=== PATIENT | female | born 1945 | race Caucasian/White ===

== ENCOUNTER 2018-10-07 18:20 | Observation (INO) | payer MEDICARE ==
[~2018-10-07] VITALS: Ht 160 cm; Wt 77.2 kg
--- OUTSIDE RECORDS SUMMARY | 2018-10-07 18:22 | XMS REPORT ---
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 Allergies, Adverse Reactions, Alerts Allergy Name Allergy Type Status Severity Reaction(s) Onset Date Inactive Date Treating Clinician Comments No Known Allergies DA Active U 2016-10-21 00:00:00 Medications This patient has no known medications. Results Test Description Test Time Test Comments Text Results Atomic Results Result Comments BASIC METABOLIC PANEL 2018-08-17 08:57:00 SODIUM (test code=NA) 140 mmol/L 136-145 POTASSIUM (test code=K) 4.2 mmol/L 3.5-5.1 CHLORIDE (test code=CL) 102.0 mmol/L 98-107 CARBON DIOXIDE (test code=CO2) 35.0 mmol/L 21-32 ANION GAP (test code=GAP) 7.2 10-20 GLUCOSE (test code=GLU) 89 mg/dL 74-106 BLOOD UREA NITROGEN (test code=BUN) 20 mg/dL 7-18 GLOMERULAR FILTRATION RATE (test code=GFR) 26 mL/min >=60 Estimated GFR by using Modified MDRD formula.Chronic kidney disease is defined as either kidney damageor GFR <60 mL/min/1.73 m2 for >3 months. CREATININE (test code=CREAT) 1.90 mg/dL 0.55-1.02 Note change in reference range due to change in reagent. BUN/CREATININE RATIO (test code=BUN/CREA) 10.5 10-20 CALCIUM (test code=CA) 8.8 mg/dL 8.5-10.1 [id number] 08:57:00* Test Item Value Reference Range Comments MAGNESIUM (test code=MAG) 2.0 mg/dL 1.8-2.4 BASIC METABOLIC [id number] 08:41:00* Test Item Value Reference Range Comments SODIUM (test code=NA) 140 mmol/L 136-145 POTASSIUM (test code=K) 4.2 mmol/L 3.5-5.1 CHLORIDE (test code=CL) 102.0 mmol/L 98-107 CARBON DIOXIDE (test code=CO2) mmol/L 21-32 ANION GAP (test code=GAP) 10-20 GLUCOSE (test code=GLU) mg/dL 74-106 BLOOD UREA NITROGEN (test code=BUN) mg/dL 7-18 GLOMERULAR FILTRATION RATE (test code=GFR) mL/min >=60 CREATININE (test code=CREAT) mg/dL 0.55-1.02 BUN/CREATININE RATIO (test code=BUN/CREA) 10-20 CALCIUM (test code=CA) mg/dL 8.5-10.1 [id number] 08:41:00* Test Item Value Reference Range Comments MAGNESIUM (test code=MAG) mg/dL 1.8-2.4 UR UREA NITROGEN [id number] 03:09:00* Test Item Value Reference Range Comments UR UREA NITROGEN RANDOM (test code=UUN) 133 mg/dL 350-1000 - US RETRO [id number] 23:56:00 Name: [facility] : 1945 Age/S: 72 / F [address] [facility] Unit #: [id number] Loc: [place] [address] Phys: Brenden Archibald MD Acct: [id number] Dis Date: Status: ADM IN PHONE #: [phone] Exam Date: 08/16/2018 2336 FAX #: [phone] Reason: worsening renal insufficiency EXAMS: CPT CODE: [id number] US RETRO LTD 55595 ULTRASOUND- RENAL AND BLADDER Location Code N13 CLINICAL HISTORY: worsening renal insufficiency Technique: Real-time duplex grayscale and color Doppler imaging was obtained. FINDINGS: The right kidney measures 10.1 x 4.7 x 4.7 cm. The left kidney measures 9.6 x 5.3 x 4.4 cm.. Both kidneys are normal in size and echogenicity without calculi. No evidence of hydronephrosis. There is a 1.1 x 0.7 x 1 cm small cysts at the lower pole of the left kidney. There is mild bilateral renal cortical thinning, more apparent on the right. The bladder is unremarkable in appearance without distention, wall thickening, masses or diverticula. IMPRESSION: Mild bilateral renal cortical thinning suggests medical renal disease. No evidence of hydronephrosis. at 2356 Reported and signed by: Dionna Lozano M.D. CC: Brenden Archibald MD Technologist: MIKHAIL TANG Trnscb Date/Time: 08/16/2018 (4045) TicoT Orig Print D/T: S: 08/17/2018 (0000) Probe: PAGE 1 Signed Report UR NA,[id number] 23:13:00* Test Item Value Reference Range Comments UR NA,RANDOM (test code=JAVIER) 119 mmol/L 20-110 UR CREATININE [id number] 23:13:00* Test Item Value Reference Range Comments UR CREATININE RANDOM (test code=CREATU) 123.0 mg/dL 30-125 UR NA,[id number] 23:04:00* Test Item Value Reference Range Comments UR NA,RANDOM (test code=JAVIER) 119 mmol/L 20-110 UR CREATININE [id number] 23:04:00* Test Item Value Reference Range Comments UR CREATININE RANDOM (test code=CREATU) mg/dL 30-125 CREATINE KINASE (CK)2018-08-16 21:04:00* Test Item Value Reference Range Comments CREATINE KINASE (CK) (test code=CK) 58 IUnit/L 26-208 BASIC METABOLIC [id number] 18:28:00* Test Item Value Reference Range Comments SODIUM (test code=NA) 140 mmol/L 136-145 POTASSIUM (test code=K) 3.8 mmol/L 3.5-5.1 CHLORIDE (test code=CL) 99.0 mmol/L 98-107 CARBON DIOXIDE (test code=CO2) 35.0 mmol/L 21-32 ANION GAP (test code=GAP) 9.8 10-20 GLUCOSE (test code=GLU) 84 mg/dL 74-106 BLOOD UREA NITROGEN (test code=BUN) 19 mg/dL 7-18 GLOMERULAR FILTRATION RATE (test code=GFR) 21 mL/min >=60 Estimated GFR by using Modified MDRD formula.Chronic kidney disease is defined as either kidney damageor GFR <60 mL/min/1.73 m2 for >3 months. CREATININE (test code=CREAT) 2.30 mg/dL 0.55-1.02 Note change in reference range due to change in reagent. BUN/CREATININE RATIO (test code=BUN/CREA) 8.3 10-20 CALCIUM (test code=CA) 9.8 mg/dL 8.5-10.1 BASIC METABOLIC [id number] 18:16:00* Test Item Value Reference Range Comments SODIUM (test code=NA) 140 mmol/L 136-145 POTASSIUM (test code=K) 3.8 mmol/L 3.5-5.1 CHLORIDE (test code=CL) 99.0 mmol/L 98-107 CARBON DIOXIDE (test code=CO2) mmol/L 21-32 ANION GAP (test code=GAP) 10-20 GLUCOSE (test code=GLU) mg/dL 74-106 BLOOD UREA NITROGEN (test code=BUN) mg/dL 7-18 GLOMERULAR FILTRATION RATE (test code=GFR) mL/min >=60 CREATININE (test code=CREAT) mg/dL 0.55-1.02 BUN/CREATININE RATIO (test code=BUN/CREA) 10-20 CALCIUM (test code=CA) mg/dL 8.5-10.1 BASIC METABOLIC [id number] 16:15:00* Test Item Value Reference Range Comments SODIUM (test code=NA) 140 mmol/L 136-145 POTASSIUM (test code=K) 3.2 mmol/L 3.5-5.1 CHLORIDE (test code=CL) 100.0 mmol/L 98-107 CARBON DIOXIDE (test code=CO2) 31.0 mmol/L 21-32 ANION GAP (test code=GAP) 12.2 10-20 GLUCOSE (test code=GLU) 136 mg/dL 74-106 BLOOD UREA NITROGEN (test code=BUN) 19 mg/dL 7-18 GLOMERULAR FILTRATION RATE (test code=GFR) 22 mL/min >=60 Estimated GFR by using Modified MDRD formula.Chronic kidney disease is defined as either kidney damageor GFR <60 mL/min/1.73 m2 for >3 months. CREATININE (test code=CREAT) 2.20 mg/dL 0.55-1.02 Note change in reference range due to change in reagent. BUN/CREATININE RATIO (test code=BUN/CREA) 8.6 10-20 CALCIUM (test code=CA) 9.8 mg/dL 8.5-10.1 DRUGS OF ABUSE SCREEN [id number] 16:14:00* Test Item Value Reference Range Comments UA PH DIPSTICK (test code=SEBASTIEN) 5.5 5.0-8.0 URN COCAINE (test code=COCAURN) NEGATIVE <300 ng/mL URN CANNABINOIDS (test code=CANNABURN) NEGATIVE <50 ng/mL URN AMPHETAMINE (test code=AMPHETURN) NEGATIVE <1000 ng/mL URN BARBITURATE (test code=BARBITURN) NEGATIVE <200 ng/mL URN BENZODIAZEPINE (test code=BENZOURN) NEGATIVE <200 ng/mL URN OPIATES (test code=OPIATURN) NEGATIVE <300 ng/mL URN PHENCYCLIDINE (PCP) (test code=PHENCURN) NEGATIVE <25 ng/mL URN METHADONE (test code=METHAURN) NEGATIVE <300 ng/mL BASIC METABOLIC [id number] 16:10:00* Test Item Value Reference Range Comments SODIUM (test code=NA) 140 mmol/L 136-145 POTASSIUM (test code=K) 3.2 mmol/L 3.5-5.1 CHLORIDE (test code=CL) 100.0 mmol/L 98-107 CARBON DIOXIDE (test code=CO2) mmol/L 21-32 ANION GAP (test code=GAP) 10-20 GLUCOSE (test code=GLU) mg/dL 74-106 BLOOD UREA NITROGEN (test code=BUN) mg/dL 7-18 GLOMERULAR FILTRATION RATE (test code=GFR) mL/min >=60 CREATININE (test code=CREAT) mg/dL 0.55-1.02 BUN/CREATININE RATIO (test code=BUN/CREA) 10-20 CALCIUM (test code=CA) mg/dL 8.5-10.1 DRUGS OF ABUSE SCREEN [id number] 15:51:00* Test Item Value Reference Range Comments UA PH DIPSTICK (test code=SEBASTIEN) 5.5 5.0-8.0 URN COCAINE (test code=COCAURN) <300 ng/mL URN CANNABINOIDS (test code=CANNABURN) <50 ng/mL URN AMPHETAMINE (test code=AMPHETURN) <1000 ng/mL URN BARBITURATE (test code=BARBITURN) <200 ng/mL URN BENZODIAZEPINE (test code=BENZOURN) <200 ng/mL URN OPIATES (test code=OPIATURN) <300 ng/mL URN PHENCYCLIDINE (PCP) (test code=PHENCURN) <25 ng/mL URN METHADONE (test code=METHAURN) <300 ng/mL URINALYSIS [id number] 15:50:00* Test Item Value Reference Range Comments UA COLOR (test code=COLU) YELLOW YELLOW UA APPEARANCE (test code=APPU) CLEAR CLEAR UA GLUCOSE DIPSTICK (test code=DGLUU) NEGATIVE mg/dL NEGATIVE UA BILIRUBIN DIPSTICK (test code=BILU) NEGATIVE mg/dL NEGATIVE UA KETONE DIPSTICK (test code=KETU) NEGATIVE mg/dL NEGATIVE UA SPECIFIC GRAVITY (test code=SGU) 1.011 1.001-1.035 UA BLOOD DIPSTICK (test code=EARLE) Negative mg/dL NEGATIVE UA PH DIPSTICK (test code=SEBASTIEN) 5.5 5.0-8.0 UA PROTEIN DIPSTICK (test code=PROU) NEGATIVE mg/dL NEGATIVE UA UROBILINIOGEN DIPSTICK (test code=URO) Normal mg/dL NEGATIVE UA NITRITE DIPSTICK (test code=THEA) NEGATIVE NEGATIVE UA LEUKOCYTE ESTERASE W REFLEX (test code=LEUUR) NEGATIVE Mitul/uL NEGATIVE UA WBC (test code=WBCU) 0-5 per HPF 0-5 UA RBC (test code=RBCU) 0-2 #/HPF 0-5 UA EPITHELIAL CELLS (test code=EPIU) FEW per HPF FEW UA BACTERIA (test code=BACU) FEW #/HPF NONE UA HYALINE CAST (test code=HYALU) >20 #/LPF 0-5 UA MUCUS (test code=MUCU) FEW #/LPF FEW Urine Source? Clean CatchURINALYSIS [id number] 15:49:00* Test Item Value Reference Range Comments UA COLOR (test code=COLU) YELLOW YELLOW UA APPEARANCE (test code=APPU) CLEAR CLEAR UA GLUCOSE DIPSTICK (test code=DGLUU) NEGATIVE mg/dL NEGATIVE UA BILIRUBIN DIPSTICK (test code=BILU) NEGATIVE mg/dL NEGATIVE UA KETONE DIPSTICK (test code=KETU) NEGATIVE mg/dL NEGATIVE UA SPECIFIC GRAVITY (test code=SGU) 1.011 1.001-1.035 UA BLOOD DIPSTICK (test code=EARLE) Negative mg/dL NEGATIVE UA PH DIPSTICK (test code=SEBASTIEN) 5.5 5.0-8.0 UA PROTEIN DIPSTICK (test code=PROU) NEGATIVE mg/dL NEGATIVE UA UROBILINIOGEN DIPSTICK (test code=URO) Normal mg/dL NEGATIVE UA NITRITE DIPSTICK (test code=THEA) NEGATIVE NEGATIVE UA LEUKOCYTE ESTERASE W REFLEX (test code=LEUUR) NEGATIVE Mitul/uL NEGATIVE UA WBC (test code=WBCU) per HPF 0-5 UA RBC (test code=RBCU) per HPF 0-5 UA EPITHELIAL CELLS (test code=EPIU) per HPF Few UA BACTERIA (test code=BACU) per HPF NONE Urine Source? Clean [id number] 13:17:00* Test Item Value Reference Range Comments ALCOHOL (test code=ALC) < 3 mg/dL 0.0-3.0 INTERPRETIVE DATA NOTE: POSITIVE SCREENING RESULTS SHOULD BE CONSIDERED PRESUMPTIVE.WHEN COLLECTED FOR MEDICAL PURPOSES ONLY. SPECIMEN WILL NOTBE COLLECTED BY CHAIN OF CUSTODY.IF A CONFIRMATION OF POSITIVE RESULTS IS DESIRED, ACONFIRMATION TEST MUST BE REQUESTED BY THE PHYSICIAN AT ANADDITIONAL CHARGE TO THE PATIENT. - XR SHOULDER 2 + V [id number] 12:50:00 FAX: Harper Schafer [phone] [place]: B St: REG Name: [facility] : [birth year] Age/S: 72/F [address] [facility] Unit #: [id number] Loc: [place] [address] Phys: Harper Samson MD Acct: [id number] Dis Date: Status: REG ER PHONE #: [phone] Exam Date: 08/16/2018 1241 FAX #: [phone] Reason: fall, shoulder pain EXAMS: CPT CODE: [id number] XR SHOULDER 2 + [place] [address] HISTORY: Fall and pain. COMPARISON: None available. AP AND LATERAL VIEW OF THE CHEST: Patchy pack in the left lateral axillary with the leads extending into the neck. No acute infiltrates, effusion or congestion. Pleural thickening of the left costophrenic angle with loss of lung volume and scarring. Dependent changes. Cardiac silhouette is nonenlarged. DJD of the dorsal spine. IMPRESSION: No acute infiltrates, effusion or congestion. No pneumothorax. BILATERAL KNEE SERIES, 4 VIEWS EACH: No acute fracture or dislocation of either knee. Joint spaces are preserved. Articular surfac es are well marginated. No joint fluid is noted. Bone mineralization and soft tissues are normal. IMPRESSION: No acu te fracture or dislocation bilaterally. Bilateral joint spaces are prese rved. 3 VIEWS OF THE RIGHT SHOULDER: No acute fracture or dislocation. Shoulder and AC joints are mildly n arrowed. Bone mineralization and soft tissues are normal. Visualized ananya gs are clear. The scapula, coracoid and glenoid are normal. IM PRESSION: No acute fracture or dislocation. Narrowed shoulder and AC joints. 3 VIEWS OF THE RIGHT ANKLE: No acute fracture or dislocation. Ankle mortise is preserved. Soft PAGE 1 Signed Report (CONTINUED) FAX: Harper Schafer [phone] [place]: St: REG Name: [facility] : 1945 A ge/S: 72/F [address] [facility] Unit #: [id number] Loc : [place] [address] Phys: Harper Samson MD Acct: [id number] Dis Date: Status: REG ER PHONE #: [phone] E xam Date: 08/16/2018 1241 FAX #: [phone] Reas on: fall, shoulder pain EXAMS: CPT CODE: [id number] XR SHOULDER 2 + [place] [address] <Continued> tissue swelling along the lateral malleolus. No osteochondral lesion. Plantar calcaneal enthesophyte. IMPRESSION: No acute fracture or dislocation. Ankle mortise is preserved. Soft tissue swelling along the lateral malleolus. 3 VIEWS OF THE LUMBAR SPINE: No acute fracture or dislocation. Vertebral body heights are maintained. Mild lumbarization of the S1 vertebral body. Dextroscoliosis. Disc space narrowing at L5-S1 level. Vascular calcifications. IMPRESSION: No acute fracture or dislocation. Vertebral body heights are maintained. at 1250 Reported and signed by: Jose Alfredo Garcia M.D. CC: Harper Gordon MD Technologist: Zahira Peters Trnscrd Date/Time/By: 08/16/2018 (12 50) : By: [email or web address] Orig Print D/T: S: 08/16/2018 (9202) PAGE 2 Signed Report - XR L-SPINE 2/3 [id number] 12:50:00 FAX: Harper Schafer [phone] [place]: St: REG Name: [facility] : [birth year] Age/S: 72/F [address] Unit #: [id number] Loc: [place] [address] Phys: Harper Sasmon MD Acct: [id number] Dis Date: Status: REG ER PHONE #: [phone] Exam Date: 08/16/2018 1210 FAX #: [phone] Reason: fall, back pain EXAMS: CPT CODE: [id number] XR L-SPINE 2/3 VIEWS 52640 HISTORY: Fall and pain. COMPARISON: None available. AP AND LATERAL VIEW OF THE CHEST: Patchy pack in the left lateral axillary with the leads extending into the neck. No acute infiltrates, effusion or congestion. Pleural thickening of the left costophrenic angle with loss of lung volume and scarring. Dependent changes. Cardiac silhouette is nonenlarged. DJD of the dorsal spine. IMPRESSION: No acute infiltrates, effusion or congestion. No pneumothorax. BILATERAL KNEE SERIES, 4 VIEWS EACH: No acute fracture or dislocation of either knee. Joint spaces are preserved. Articular surfac es are well marginated. No joint fluid is noted. Bone mineralization and soft tissues are normal. IMPRESSION: No acu te fracture or dislocation bilaterally. Bilateral joint spaces are prese rved. 3 VIEWS OF THE RIGHT SHOULDER: No acute fracture or dislocation. Shoulder and AC joints are mildly n arrowed. Bone mineralization and soft tissues are normal. Visualized ananya gs are clear. The scapula, coracoid and glenoid are normal. IM PRESSION: No acute fracture or dislocation. Narrowed shoulder and AC joints. 3 VIEWS OF THE RIGHT ANKLE: No acute fracture or dislocation. Ankle mortise is preserved. Soft PAGE 1 Signed Report (CONTINUED) FAX: Harper Schafer [phone] [place]: St: REG Name: [facility] : 1945 A ge/S: 72/ [facility] [address] Unit #: [id number] Loc : [place] [address] Phys: Harper Samson MD Acct: [id number] Dis Date: Status: REG ER PHONE #: [phone] E xam Date: 08/16/2018 1210 FAX #: [phone] Reas on: fall, back pain EXAMS: CPT CODE: [id number] XR L-SPINE 2/3 VIEWS 00056 <Continued> tissue swelling along the lateral malleolus. No osteochondral lesion. Plantar calcaneal enthesophyte. IMPRESSION: No acute fracture or dislocation. Ankle mortise is preserved. Soft tissue swelling along the lateral malleolus. 3 VIEWS OF THE LUMBAR SPINE: No acute fracture or dislocation. Vertebral body heights are maintained. Mild lumbarization of the S1 vertebral body. Dextroscoliosis. Disc space narrowing at L5-S1 level. Vascular calcifications. IMPRESSION: No acute fracture or dislocation. Vertebral body heights are maintained. at 1258 Reported and signed by: Jose Alfredo Garcia M.D. CC: Harper Gordon MD Technologist: Zahira Peters Trnscrd Date/Time/By: 08/16/2018 (12 50) : By: [email or web address] Orig Print D/T: S: 08/16/2018 (8286) PAGE 2 Signed Report - XR KNEE 3 V [id number] 12:50:00 FAX: Harper Schafer [phone] [place]: B St: REG Name: [facility] : [birth year] Age/S: 72/F [facility] Unit #: [id number] Loc: [place] [address] Phys: Harper Samson MD Acct: [id number] Dis Date: Status: REG ER PHONE #: [phone] Exam Date: 08/16/2018 1220 FAX #: [phone] Reason: fall, knee pain EXAMS: CPT CODE: [id number] XR KNEE [address] [place] [address] HISTORY: Fall and pain. COMPARISON: None available. AP AND LATERAL VIEW OF THE CHEST: Patchy pack in the left lateral axillary with the leads extending into the neck. No acute infiltrates, effusion or congestion. Pleural thickening of the left costophrenic angle with loss of lung volume and scarring. Dependent changes. Cardiac silhouette is nonenlarged. DJD of the dorsal spine. IMPRESSION: No acute infiltrates, effusion or congestion. No pneumothorax. BILATERAL KNEE SERIES, 4 VIEWS EACH: No acute fracture or dislocation of either knee. Joint spaces are preserved. Articular surfac es are well marginated. No joint fluid is noted. Bone mineralization and soft tissues are normal. IMPRESSION: No acu te fracture or dislocation bilaterally. Bilateral joint spaces are prese rved. 3 VIEWS OF THE RIGHT SHOULDER: No acute fracture or dislocation. Shoulder and AC joints are mildly n arrowed. Bone mineralization and soft tissues are normal. Visualized ananya gs are clear. The scapula, coracoid and glenoid are normal. IM PRESSION: No acute fracture or dislocation. Narrowed shoulder and AC joints. 3 VIEWS OF THE RIGHT ANKLE: No acute fracture or dislocation. Ankle mortise is preserved. Soft PAGE 1 Signed Report (CONTINUED) FAX: Harper Schafer [phone] [place]: St: REG Name: [facility] : 1945 A ge/S: 72/F [address] Unit #: [id number] Loc : [place] [address] Phys: Harper Samson MD Acct: [id number] Dis Date: Status: REG ER PHONE #: [phone] E xam Date: 08/16/2018 1220 FAX #: [phone] Reas on: fall, knee pain EXAMS: CPT CODE: [id number] XR KNEE [address] [place] [address] <Continued> tissue swelling along the lateral malleolus. No osteochondral lesion. Plantar calcaneal enthesophyte. IMPRESSION: No acute fracture or dislocation. Ankle mortise is preserved. Soft tissue swelling along the lateral malleolus. 3 VIEWS OF THE LUMBAR SPINE: No acute fracture or dislocation. Vertebral body heights are maintained. Mild lumbarization of the S1 vertebral body. Dextroscoliosis. Disc space narrowing at L5-S1 level. Vascular calcifications. IMPRESSION: No acute fracture or dislocation. Vertebral body heights are maintained. at 1250 Reported and signed by: Jose Alfredo Garcia M.D. CC: Harper Gordon MD Technologist: Zahira Peters Trnscrd Date/Time/By: 08/16/2018 (12 50) : By: [email or web address] Orig Print D/T: S: 08/16/2018 (2971) PAGE 2 Signed Report - XR ANKLE 3 + V [id number] 12:50:00 FAX: Harper Schafer [phone] [place]: B St: REG Name: [facility] : [birth year] Age/S: 72/F [address] Unit #: [id number] Loc: [place] [address] Phys: Harper Samson MD Acct: [id number] Dis Date: Status: REG ER PHONE #: [phone] Exam Date: 08/16/2018 1230 FAX #: [phone] Reason: fall, ankle pain EXAMS: CPT CODE: [id number] XR ANKLE 3 + V RT [address] HISTORY: Fall and pain. COMPARISON: None available. AP AND LATERAL VIEW OF THE CHEST: Patchy pack in the left lateral axillary with the leads extending into the neck. No acute infiltrates, effusion or congestion. Pleural thickening of the left costophrenic angle with loss of lung volume and scarring. Dependent changes. Cardiac silhouette is nonenlarged. DJD of the dorsal spine. IMPRESSION: No acute infiltrates, effusion or congestion. No pneumothorax. BILATERAL KNEE SERIES, 4 VIEWS EACH: No acute fracture or dislocation of either knee. Joint spaces are preserved. Articular surfac es are well marginated. No joint fluid is noted. Bone mineralization and soft tissues are normal. IMPRESSION: No acu te fracture or dislocation bilaterally. Bilateral joint spaces are prese rved. 3 VIEWS OF THE RIGHT SHOULDER: No acute fracture or dislocation. Shoulder and AC joints are mildly n arrowed. Bone mineralization and soft tissues are normal. Visualized ananya gs are clear. The scapula, coracoid and glenoid are normal. IM PRESSION: No acute fracture or dislocation. Narrowed shoulder and AC joints. 3 VIEWS OF THE RIGHT ANKLE: No acute fracture or dislocation. Ankle mortise is preserved. Soft PAGE 1 Signed Report (CONTINUED) FAX: Harper Schafer [phone] [place]: B St: REG Name: [facility] : 1945 A ge/S: 72/F [address] Unit #: [id number] Loc : [place] [address] Phys: Harper Samson MD Acct: [id number] Dis Date: Status: REG ER PHONE #: [phone] E xam Date: 08/16/2018 1230 FAX #: [phone] Reas on: fall, ankle pain EXAMS: CPT CODE: [id number] XR ANKLE 3 + V RT 26718 <Continued> tissue swelling along the lateral malleolus. No osteochondral lesion. Plantar calcaneal enthesophyte. IMPRESSION: No acute fracture or dislocation. Ankle mortise is preserved. Soft tissue swelling along the lateral malleolus. 3 VIEWS OF THE LUMBAR SPINE: No acute fracture or dislocation. Vertebral body heights are maintained. Mild lumbarization of the S1 vertebral body. Dextroscoliosis. Disc space narrowing at L5-S1 level. Vascular calcifications. IMPRESSION: No acute fracture or dislocation. Vertebral body heights are maintained. at 4806 Reported and signed by: Jose Alfredo Garcia M.D. CC: Harper Gordon MD Technologist: Zahira Peters Trnscrd Date/Time/By: 08/16/2018 (12 50) : By: [email or web address] Orig Print D/T: S: 08/16/2018 (1733) PAGE 2 Signed Report - XR CHEST 2 [id number] 12:50:00 FAX: Harper Schafer [phone] [place]: St: REG Name: [facility] : [birth year] Age/S: 72/F [address] [facility] Unit #: [id number] Loc: [place] [address] Phys: Harper Samson MD Acct: [id number] Dis Date: Status: REG ER PHONE #: [phone] Exam Date: 08/16/2018 1200 FAX #: [phone] Reason: fall EXAMS: CPT CODE: [id number] XR CHEST 2 V 88600 HISTORY: Fall and pain. COMPARISON: None available. AP AND LATERAL VIEW OF THE CHEST: Patchy pack in the left lateral axillary with the leads extending into the neck. No acute infiltrates, effusion or congestion. Pleural thickening of the left costophrenic angle with loss of lung volume and scarring. Dependent changes. Cardiac silhouette is nonenlarged. DJD of the dorsal spine. IMPRESSION: No acute infiltrates, effusion or congestion. No pneumothorax. BILATERAL KNEE SERIES, 4 VIEWS EACH: No acute fracture or dislocation of either knee. Joint spaces are preserved. Articular surfac es are well marginated. No joint fluid is noted. Bone mineralization and soft tissues are normal. IMPRESSION: No acu te fracture or dislocation bilaterally. Bilateral joint spaces are prese rved. 3 VIEWS OF THE RIGHT SHOULDER: No acute fracture or dislocation. Shoulder and AC joints are mildly n arrowed. Bone mineralization and soft tissues are normal. Visualized ananya gs are clear. The scapula, coracoid and glenoid are normal. IM PRESSION: No acute fracture or dislocation. Narrowed shoulder and AC joints. 3 VIEWS OF THE RIGHT ANKLE: No acute fracture or dislocation. Ankle mortise is preserved. Soft PAGE 1 Signed Report (CONTINUED) FAX: Harper Schafer [phone] [place]: St: REG Name: [facility] : 1945 A ge/S: 72/ [address] Sinha [facility] Unit #: [id number] Loc : [place] [address] Phys: Harper Samson MD Acct: [id number] Dis Date: Status: REG ER PHONE #: [phone] E xam Date: 08/16/2018 1200 FAX #: [phone] Reas on: fall EXAMS: CPT CODE: [id number] XR CHEST 2 V 32838 <Continued> tissue swelling along the lateral malleolus. No osteochondral lesion. Plantar calcaneal enthesophyte. IMPRESSION: No acute fracture or dislocation. Ankle mortise is preserved. Soft tissue swelling along the lateral malleolus. 3 VIEWS OF THE LUMBAR SPINE: No acute fracture or dislocation. Vertebral body heights are maintained. Mild lumbarization of the S1 vertebral body. Dextroscoliosis. Disc space narrowing at L5-S1 level. Vascular calcifications. IMPRESSION: No acute fracture or dislocation. Vertebral body heights are maintained. at 1250 Reported and signed by: Jose Alfredo Garcia M.D. CC: Harper Gordon MD Technologist: Zahira Peters Trnscrd Date/Time/By: 08/16/2018 (12 50) : By: [email or web address] Orig Print D/T: S: 08/16/2018 (0272) PAGE 2 Signed Report COMPREHENSIVE METABOLIC [id number] 12:38:00* Test Item Value Reference Range Comments SODIUM (test code=NA) 143 mmol/L 136-145 POTASSIUM (test code=K) 2.5 mmol/L 3.5-5.1 Results called [id number] to by [email or web address] 08/16/18 1236Critical results verified and read back by Nurse? Y CHLORIDE (test code=CL) 102.0 mmol/L 98-107 CARBON DIOXIDE (test code=CO2) mmol/L 21-32 ANION GAP (test code=GAP) 10-20 GLUCOSE (test code=GLU) mg/dL 74-106 BLOOD UREA NITROGEN (test code=BUN) mg/dL 7-18 GLOMERULAR FILTRATION RATE (test code=GFR) mL/min >=60 CREATININE (test code=CREAT) mg/dL 0.55-1.02 BUN/CREATININE RATIO (test code=BUN/CREA) 10-20 TOTAL PROTEIN (test code=PROT) gram/dL 6.4-8.2 ALBUMIN (test code=ALB) g/dL 3.4-5.0 GLOBULIN (test code=GLOB) gram/dL 2.7-4.2 ALBUMIN/GLOBULIN RATIO (test code=A/G) 0.75-1.50 CALCIUM (test code=CA) mg/dL 8.5-10.1 BILIRUBIN TOTAL (test code=BILT) mg/dL 0.0-1.0 SGOT/AST (test code=AST) IUnit/L 15-37 SGPT/ALT (test code=ALT) IUnit/L 12-78 ALKALINE PHOSPHATASE TOTAL (test code=ALKP) IUnit/L 45-117 [id number] 12:38:00* Test Item Value Reference Range Comments LIPASE (test code=LIP) U/L 73.0-393.0 [id number] 12:38:00* Test Item Value Reference Range Comments CKMB (test code=CKMBT) ng/mL 0-6.0 [id number] 12:38:00* Test Item Value Reference Range Comments TROPONIN-I (test code=TROPI) ng/mL 0-0.045 COMPREHENSIVE METABOLIC [id number] 12:38:00* Test Item Value Reference Range Comments SODIUM (test code=NA) 143 mmol/L 136-145 POTASSIUM (test code=K) 2.5 mmol/L 3.5-5.1 Results called [id number] to by [email or web address] 08/16/18 1236Critical results verified and read back by Nurse? Y CHLORIDE (test code=CL) 102.0 mmol/L 98-107 CARBON DIOXIDE (test code=CO2) 28.0 mmol/L 21-32 ANION GAP (test code=GAP) 15.5 10-20 GLUCOSE (test code=GLU) 153 mg/dL 74-106 BLOOD UREA NITROGEN (test code=BUN) 16 mg/dL 7-18 GLOMERULAR FILTRATION RATE (test code=GFR) 28 mL/min >=60 Estimated GFR by using Modified MDRD formula.Chronic kidney disease is defined as either kidney damageor GFR <60 mL/min/1.73 m2 for >3 months. CREATININE (test code=CREAT) 1.80 mg/dL 0.55-1.02 Note change in reference range due to change in reagent. BUN/CREATININE RATIO (test code=BUN/CREA) 8.9 10-20 TOTAL PROTEIN (test code=PROT) 8.0 gram/dL 6.4-8.2 ALBUMIN (test code=ALB) 4.1 g/dL 3.4-5.0 GLOBULIN (test code=GLOB) 3.9 gram/dL 2.7-4.2 ALBUMIN/GLOBULIN RATIO (test code=A/G) 1.1 0.75-1.50 CALCIUM (test code=CA) 9.2 mg/dL 8.5-10.1 BILIRUBIN TOTAL (test code=BILT) 0.80 mg/dL 0.0-1.0 SGOT/AST (test code=AST) 17 IUnit/L 15-37 SGPT/ALT (test code=ALT) 19 IUnit/L 12-78 ALKALINE PHOSPHATASE TOTAL (test code=ALKP) 145 IUnit/L 45-117 Note change in reference range due to change in reagent. [id number] 12:38:00* Test Item Value Reference Range Comments LIPASE (test code=LIP) 78 U/L 73.0-393.0 [id number] 12:38:00* Test Item Value Reference Range Comments CKMB (test code=CKMBT) < 1.0 ng/mL 0-6.0 [id number] 12:38:00* Test Item Value Reference Range Comments TROPONIN-I (test code=TROPI) <0.015 ng/mL 0-0.045 CBC W/AUTO [id number] 12:09:00* Test Item Value Reference Range Comments WHITE BLOOD CELL (test code=WBC) 10.5 K/mm3 4.5-12.5 RED BLOOD CELL (test code=RBC) 5.30 mill/mm3 3.7-5.2 HEMOGLOBIN (test code=HGB) 16.3 gram/dL 11.5-15.5 HEMATOCRIT (test code=HCT) 48.0 % 36.0-46.0 MEAN CELL VOLUME (test code=MCV) 90.6 fL 80-98 MEAN CELL HGB (test code=MCH) 30.8 picogram 27.0-33.0 MEAN CELL HGB CONCETRATION (test code=MCHC) 34.0 gram/dL 33.0-36.0 RED CELL DISTRIBUTION WIDTH (test code=RDW) 12.7 % 11.6-16.2 RED CELL DISTRIBUTION WIDTH SD (test code=RDW-SD) 41.6 fL 37.0-51.0 PLATELET COUNT (test code=PLT) 266 K/mm3 150-450 MEAN PLATELET VOLUME (test code=MPV) 11.0 fL 6.7-11.0 NEUTROPHIL % (test code=NT%) 63.8 % 39.0-69.0 IMMATURE GRANULOCYTE % (test code=IG%) 0.4 % 0.0-5.0 LYMPHOCYTE % (test code=LY%) 28.0 % 25.0-55.0 MONOCYTE % (test code=MO%) 5.6 % 0.0-10.0 EOSINOPHIL % (test code=EO%) 1.0 % 0.0-5.0 BASOPHIL % (test code=BA%) 1.2 % 0.0-1.0 NUCLEATED RBC % (test code=NRBC%) 0.0 % 0-0 NEUTROPHIL # (test code=NT#) 6.72 K/mm3 1.8-7.7 IMMATURE GRANULOCYTE # (test code=IG#) 0.04 x10 3/uL 0-0.03 LYMPHOCYTE # (test code=LY#) 2.95 K/mm3 1.0-5.0 MONOCYTE # (test code=MO#) 0.59 K/mm3 0-0.8 EOSINOPHIL # (test code=EO#) 0.11 K/mm3 0.0-0.5 BASOPHIL # (test code=BA#) 0.13 K/mm3 0.0-0.2 NUCLEATED RBC # (test code=NRBC#) 0.00 K/mm3 0.0-0.1 MANUAL DIFF REQUIRED (test code=MDIFF) NO - CT C-SPINE W/O [id number] 12:01:00 Name: [facility] : 1945 Age/S: 72 / F [address] Unit #: [id number] Loc: [place] [address] Phys: Harper Samson MD Acct: [id number] Dis Date: Status: REG ER PHONE #: [phone] Exam Date: 08/16/2018 1147 FAX #: [phone] Reason: fall EXAMS: CPT CODE: [id number] CT C-SPINE W/O CONTRAST 96729 HISTORY: Fall and pain. COMPARISON: CT scan from October 21, 2016. CT cervical spine without contrast: Automated exposure control. No acute fracture of the cervical spine. No prevertebral soft tissue swelling is noted. Scattered posterior osteophytes. Moderate to severe facet hypertrophy throughout the cervical spine resulting in severe multilevel foraminal stenosis. Correlate with radicular symptoms. The thyroid glands are heterogeneous with small subcentimeter nodules especially on the left side. Superior mediastinum is unremarkable along apices are clear. Anatomic alignment. Vertebral body heights are maintained. Narrowed disc space at C5-C6 and C6-C7 levels with anterior osteophytes. Uncovertebral joints are narrowed. IMPRESSION: No acute fracture. Anatomic al ignment. DJD. 19 at 1201 Reported and signed by: Jose Alfredo Garcia M.D. CC: Harper Samson MD Tech nologist:TRAN PEOPLES RT(R); [employer] CTDI: DLP: Trnscb Date/Ti me: 08/16/2018 (1201) [email or web address] Orig Print D/T: S: 2018 (7300) PAGE 1 Signed Report - CT HEAD/BRAIN W/O [id number] 11:55:00 Name: [facility] : 1945 Age/S: 72 / F [address] [facility] Unit #: [id number] Loc: [place] [address] Phys: Harper Samson MD Acct: [id number] Dis Date: Status: PRE ER PHONE #: [phone] Exam Date: 08/16/2018 1143 FAX #: [phone] Reason: fall EXAMS: CPT CODE: [id number] CT HEAD/BRAIN W/O CONT 53616 HISTORY: Fall and pain and anxiety. COMPARISON: Head CT from October 21, 2016. CT brain without contrast: Automated exposure control.. No acute intracranial bleeds or extra-axial collections are noted. No acute territorial vascular infarction is noted. Stimulating electrodes noted from bifrontal approach with the tip residing within the midbrain region demonstrating no significant change. The sulci, gyri, ventricles and finn barachnoid spaces and the basilar cisterns are normal for patient's age. N o herniation or hydrocephalus or midline shift is noted. Mil d periventricular ischemic gliosis is noted. Age-appropriate atrophy is no jennifer as well. Portions of the visualized paranasal sinuses are norm al. No obvious bony calvarial defect is noted. IMP RESSION: No acute intracranial bleeds or extra-axial collectio ns. No acute territorial vascular infarction. No herniation or hydrocephalus or midline shift. Chronic wh ite matter ischemic disease and atrophy . Electr onically Signed by Shankar Garcia on 08/16/2018 at 1155 Reported and signed by: Jose Alfredo Garcia M.D. CC: Harper Samson MD Technologist:TRAN SANTOYO(R); [employer] CTDI: DLP: Trnscb Date/Time: 08/16/2018 (6591) [email or web address] Orig Print D/T: S: 08/16/2018 (2465) PAGE 1 Signed Report
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
--- NOTE | 2018-10-07 19:44 | NUR ---
Called [facility] and [facility] all currently at capacity for the night.
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
[2018-10-07] MEDS ORDERED: LOVASTATIN40 MG PO (20:42)
[2018-10-07] MEDS ORDERED: TRAZODONE HCL50 MG PO (20:42)
[2018-10-07] MEDS ORDERED: SINEMET 25-1001 EACH PO (20:42)
[2018-10-07] MEDS ORDERED: LASIX40 MG PO (20:42)
[2018-10-07] MEDS ORDERED: AMANTADINE100 M1 PO (20:42)
[2018-10-07] MEDS ORDERED: ESCITALOPRAM OX20 MG PO (20:42)
[2018-10-07 21:30] VITALS: BP 143/70
[2018-10-07 22:00] VITALS: BP 143/70
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
[2018-10-08] VITALS (8 sets, daily range): BP systolic 107–133; BP diastolic 53–79
--- NOTE | 2018-10-08 07:00 | NUR ---
BEDSIDE SHIFT REPORT FROM NIGHT RN. PT DENIES NEEDS AT THIS TIME.
--- NOTE | 2018-10-08 08:28 | NUR ---
[facility] WITH DR [facility] [place]QUEST FOR PSYCH CONSULT, WAS ABLE TO GET ORDER AND CALLED FOR CONSULT.
--- NOTE | 2018-10-08 09:05 | NUR ---
WAS INFORMED BY [facility] THIS PT IS AN APPROPRIATE [facility] UNDER DR EDDIE HOSKINS, WILL FAX CLINICALS.
[2018-10-08 09:31] LABS: BASOPHILS # (AUTO) 0.1 (0.0-0.1); EOSINOPHILS # (AUTO) 0.1 (0.0-0.4); EOSINOPHILS % 1.2 % (0.0-6.0); HEMATOCRIT 40.7 % (34.2-44.1); LYMPHOCYTES # (AUTO) 3.2 (1.0-3.2); LYMPHOCYTES % 31.9 % (18.0-39.1); MEAN CORPUSCULAR HEMOGLOBIN 31.8 pg (28-32); MEAN CORPUSCULAR HGB CONC 34.4 g/dL (31-35); MEAN CORPUSCULAR VOLUME 92.5 fL (81-99); MONOCYTES # (AUTO) 0.8 (0.2-0.8); MONOCYTES % 7.8 % (4.4-11.3); NEUTROPHILS # (AUTO) 5.8 (2.1-6.9); NEUTROPHILS % 57.7 % (38.7-80.0); PLATELET COUNT 239 x10e3/uL (140-360); RED CELL DISTRIBUTION WIDTH 12.5 % (11.7-14.4)
[2018-10-08] MEDS: DIVALPROEX SODIUM 125 MG TABDR...ER PO SCH ×2 (09:37→20:37)
[2018-10-08 09:54] LABS: ALBUMIN 3.5 g/dL (3.5-5.0); ALBUMIN/GLOBULIN RATIO 1.1 (0.8-2.0); ANION GAP 16.9 mmol/L (8-16); CALCIUM 9.3 mg/dL (8.4-10.2); CREATININE, SERUM 1.25 mg/dL (0.57-1.11)
[2018-10-08 09:57] LABS: POTASSIUM 2.9 mmol/L (3.5-5.1)
--- NOTE | 2018-10-08 10:03 | NUR ---
SPOKE WITH PT, SIGNED CHOICE FOR [facility] WILL FAX CLINICALS TO FACILITY, WAITING ON MEDICAL CLEARANCE, SPOKE WITH DR MELO HE IS COMING TO SEE PT AND THEN WILL BE ABLE TO GET TO OTHER FACILITY.
[2018-10-08] MEDS ORDERED: POTASSIUM CHLORIDE 20 MEQ TAB CR PO ONE (11:45)
--- NOTE | 2018-10-08 12:00 | NUR ---
RCD BED SIDE REPORT PT RESTING ON BED NO SIGNS OF ANY DISTRESS NOTED BED LOW AND LOCKED CALL LIGHT IN REACH
--- NOTE | 2018-10-08 12:40 | NUR ---
SPOKE WITH JOSE L AT [facility], SHE STATES PT IS ACCEPTED BUT BED WILL NOT BE READY UNTIL IN MORNING. NURSE TO NURSE HAS ALREADY BEEN COMPLETED. ONLY THING THAT NEEDS TO BE DONE IS TRANSPORT WILL NEED TO BE SET UP FOR IN THE MORNING. PT CAN BE PICKED UP AT 730 AND TRANSPORTED TO [facility], RTF IS COMPLETED AND GIVEN TO NURSE. [id number] [facility], [place] [address]
[2018-10-08] MEDS ORDERED: POTASSIUM CHLORIDE 20 MEQ TAB CR PO SCH (14:00)
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
--- NOTE | 2018-10-08 14:55 | NUR ---
Visit made by the Spiritual Care Department Pastoral Visitor, Denise Reeves. PV provided pastoral presence, prayer, hospitality, and supportive listening. Pastoral Visitor informed pt/family of the scope of [facility] and availability. [facility] Spiritual Care Department O: [phone] Pager: [phone] ([phone] number calling from)
--- NOTE | 2018-10-08 18:42 | NUR ---
PT RESTING ON BED BED SIDE REPORT GIVEN TO ONCOMING NURSE
--- NOTE | 2018-10-08 20:30 | NUR ---
PATIENT RESTING QUIETLY IN BED. RESP EVEN AND UNLABORED. NO ACUTE DISTRESS NOTED. CALL LIGHT WITHIN REACH. BED LOW/LOCKED. CONTINUE TO MONITOR CLOSELY
[2018-10-08] MEDS ORDERED: MIRTAZAPINE 15 MG TAB PO SCH (21:00)
[2018-10-09] VITALS: BP 98/51
[2018-10-09 04:00] VITALS: BP 96/54
--- NOTE | 2018-10-09 07:00 | NUR ---
RCD PT AT BED PT IS ALERT AND ORIENTED PT RESTING ON BED NO SIGNS OF ANY DISTRESS NOTED BED LOW AND LOCKED CALL LIGHT IN REACH
[2018-10-09 08:00] VITALS: BP 112/57
[2018-10-09 08:22] VITALS: BP 112/57
[2018-10-09] MEDS: DIVALPROEX SODIUM 125 MG TABDR...ER PO SCH (09:00)
[2018-10-09] MEDS ORDERED: LORAZEPAM 0.5 MG TAB PO PRN (09:15)
--- NOTE | 2018-10-09 11:21 | Progress Note ---
DATE: 10/09/2018 Psychiatric Progress Note SUBJECTIVE: The patient is evaluated and events noted. The patient is sitting up in bed. She is alert, awake, oriented to situation. She appears to be somewhat restless. She claims she had some itching last night. She claims she had jerking movement. A record does indicate she has history of Parkinson's. She denies any hallucination. Denies any suicidal ideation. She reports feeling anxious. She is hyperverbal and somewhat manic. She is taking medication and no serious side effects seen at this time. We will continue observe her for now. Discussed with nursing staff, who reported that the patient is hyper, but not combative. According to social service note, she is waiting for inpatient psych. ASSESSMENT: 1. Major depressive disorder, recurrent, moderate. 2. Rule out bipolar. 3. Continue Remeron 7.5 mg p.o. at bedtime. 4. Increase Depakote to 125 mg p.o. three times a day. 5. Ammonia level is 33. Dictated by Heather David PA-C Abad Freeman MD QTV/MODL /[id number]
--- NOTE | 2018-10-09 13:15 | NUR ---
PAGED DR Aaron MELO TO NOTIFY THE POTASSIUM LEVEL
[2018-10-09] MEDS ORDERED: POTASSIUM CHLORIDE 20 MEQ TAB CR PO STA (14:57)
--- NOTE | 2018-10-09 15:24 | NUR ---
CM SPOKE TO FEI AT [facility] REGARDING PATIENT TRANSFER. PATIENT TO HAVE BED AVAILABLE AT 3:00 PM. PATTERN DESIGNER NOTIFIED. AMBULANCE NOTIFIED BY PATTERN DESIGNER TO COME MEDICAL BILLING CODER PATIENT AT 3:00 PM.
--- NOTE | 2018-10-09 17:13 | NUR ---
PT DISCHARGED TO [facility] IN SAFE CONDITION
== END 2018-10-09 17:13 | disposition psychiatric hospital, planned readmission (93) ==
LOC: ER 18:20 → ERHOLD 21:48 → MED/SURG2 21:54
DX: F31.9 Bipolar disorder, unspecified (principal); F41.9 Anxiety disorder, unspecified
CPT/HCPCS: 36415 ×2; 80053; 82140; 84132; 85025; 99283; G0378 ×3